=== PATIENT | female | born 1970 | race Caucasian/White ===

== ENCOUNTER 2022-05-13 06:21 | Day surgery (SDC) | payer BC ==
[2022-05-13] MEDS ORDERED: Lactated Ringers 1,000 ML IV SCH (06:30)
[2022-05-13] MEDS ORDERED: fentaNYL 100 MCG/2 ML SDV ONE (07:12)
[2022-05-13] MEDS ORDERED: Propofol 200 MG/20 ML SDV ONE (07:12)
[2022-05-13] MEDS ORDERED: Midazolam 1 MG/ML 2 ML SDV ONE (07:13)
[2022-05-13] MEDS ORDERED: Ondansetron 4 MG/2 ML SDV ONE (07:14)
== END 2022-05-13 08:43 | disposition home or self-care (01) ==
LOC: JP.SDS 06:21
PROVIDERS: ATTEND Family Medicine
DX: Z12.11 Encounter for screening for malignant neoplasm of colon (principal); D12.5 Benign neoplasm of sigmoid colon; F32.A Depression, unspecified; Z88.0 Allergy status to penicillin; Z90.710 Acquired absence of both cervix and uterus; Z79.899 Other long term (current) drug therapy
CPT/HCPCS: 45380; 88305; J2250; J2405; J2704; J3010; J7120